=== PATIENT | female | born 1995 | race Two or more races ===

== ENCOUNTER 2024-08-20 18:39 | Emergency (ER) | payer OTHER ==
[~2024-08-20] VITALS: Ht 165.1 cm; Wt 83.5 kg
[2024-08-20] MEDS ORDERED: BUPROPION XL150 MG PO (18:55)
[2024-08-20] MEDS ORDERED: FAMOTIDINE40 MG PO (18:55)
[2024-08-20] MEDS ORDERED: OMEPRAZOLE20 MG PO (18:55)
[2024-08-20] MEDS ORDERED: KETOROLAC TROMETHAMINE 30 MG VIAL IV ONE (20:15)
[2024-08-20] MEDS ORDERED: FAMOtidine 10 MG/ML (4ML VIAL) IV PUSH ONE (20:15)
[2024-08-20] MEDS ORDERED: KETOROLAC TROMETHAMINE 30 MG VIAL ONE (20:18)
[2024-08-20] MEDS ORDERED: FAMOTIDINE/PF 20 MG/2 ML VIAL ONE (20:19)
[2024-08-20 20:54] LABS: HEMATOCRIT 37.4 % (36.0-45.00); HEMOGLOBIN 12.9 g/dL (12.0-15.00); MEAN CELL VOLUME 84.6 fL (80.00-100.00); MEAN CORPUSCULAR HEMOGLOBIN 29.2 pg (27.00-32.0); MEAN CORPUSCULAR HGB CONC 34.5 g/dl (32.0-36.0); PLATELET COUNT 341 K/uL (150-450); RED BLOOD COUNT 4.42 M/uL (4.00-6.00); RED CELL DISTRIBUTION WIDTH 12.9 % (11.5-14.5)
[2024-08-20 21:05] LABS: ALBUMIN 3.9 gm/dL (3.4-5.0); ALKALINE PHOSPHATASE 52 U/L (50-136); ALT/SGPT 29 U/L (12-78); ANION GAP 8 (10.0-20.0); AST/SGOT 31 U/L (15-37); BILIRUBIN TOTAL 0.28 mg/dL (0.3-1.2); BLOOD UREA NITROGEN 10 mg/dL (7-18); BUN CREA RATIO 14 (7.0-25.0); CALCIUM 9.6 mg/dL (8.5-10.1); CARBON DIOXIDE 29 mEq/L (21-32); CHLORIDE 108 mmol/L (98-107); CREATININE SERUM 0.74 mg/dL (0.55-1.02); GFR 92.78; GLOBULINA 3.4 G/DL (2.4-3.5); GLUCOSE FASTING 107 mg/dL (65-100); OSMOLALITY SERUM 281 MOSM/KG (275-295); POTASSIUM 3.75 mEq/L (3.5-5.1); SODIUM 141 mmol/L (136-145); TOTAL PROTEIN 7.3 gm/dL (6.4-8.2)
[2024-08-20 21:07] LABS: HCG QUANTITATIVE < 1 mUI/mL (1-3)
[2024-08-20] MEDS ORDERED: PEPCID AC20 MG PO (22:28)
[2024-08-20 23:10] VITALS: BP 122/87; O2SAT 100
== END 2024-08-20 23:11 | disposition home or self-care (01) ==
LOC: ER 18:39
PROVIDERS: General Practice
DX: K29.70 Gastritis, unspecified, without bleeding (principal); E11.9 Type 2 diabetes mellitus without complications; Z79.84 Long term (current) use of oral hypoglycemic drugs